=== PATIENT | male | born 1975 | race Hispanic/Latino ===

== ENCOUNTER 2018-01-25 11:50 | Emergency (ER) | payer OTHER ==
[2018-01-25] MEDS ORDERED: NACL 0.9% 1000 ML 1,000 ML IV ONE (12:25)
[2018-01-25 14:14] LABS: Basophils # (Auto) 0.1 K/mm3 (0.0-0.1); Basophils % (Auto) 1.4 % (0.0-1.8); Eosinophils # (Auto) 0.1 K/mm3 (0.0-0.4); Eosinophils % (Auto) 1.4 % (0.0-4.3); Hemoglobin 15.8 gm/dl (11.8-15.2); Lymphocytes # (Auto) 2.6 K/mm3 (1.2-5.4); Mean Corpuscular HGB Conc 34 % (32-34); Mean Corpuscular Hemoglobin 33 pg (28-32); Mean Corpuscular Volume 95 fl (84-94); Monocytes # (Auto) 0.5 K/mm3 (0.0-0.8); Platelet Count 272 K/mm3 (140-440); Red Blood Count 4.82 M/mm3 (3.65-5.03); Red Cell Distribution Width 13.6 % (13.2-15.2)
[2018-01-25 14:37] LABS: Alanine Aminotransferase 14 units/L (7-56); Albumin 4.1 g/dL (3.9-5); BUN/Creatinine Ratio 20; Blood Urea Nitrogen 12 mg/dL (9-20); Hemolysis Index 8; Lipase 80 units/L (13-60)
[2018-01-25 15:42] LABS: Bilirubin,Urine NEG (Negative); Blood,Urine NEG (Negative); Color,Urine Yellow (Yellow); Mucus,Urine FEW /HPF; Protein,Urine <15 mg/dL mg/dL (Negative); Urobilinogen,Urine < 2.0 mg/dL (<2.0)
[2018-01-25] MEDS ORDERED: NACL 0.9% 1000 ML 2,000 ML IV ONE (15:50)
--- NOTE | 2018-01-25 15:54 | Emergency Department Report ---
ED N/V/D HPI - General Chief complaint: Nausea/Vomiting/Diarrhea Stated complaint: SALMONELLA POISON Time Seen by Provider: 01/25/18 15:34 Source: patient Mode of arrival: Ambulatory Limitations: No Limitations - History of Present Illness Initial comments: This is a 43-year-old male here today because he was sent by his doctor from [facility] for treatment for salmonella. Patient said his PCP is Dr. Arabella Kearney and she did stool test and an H. pylori test on him 4 days ago and he received a phone call to say that he needs to go to the emergency room to be evaluated and treated. Patient reports that he started having diarrhea with intermittent blood in his stool since October 2017. He said he went to his primary care doctor and he was placed on Imodium. Patient said diarrhea has gotten better but has generalized weakness and bouts of nausea with previous vomiting and when symptoms first started but none over the last 2 weeks. He reports intermittent abdominal cramping to left lower quadrant that is 2/10. He said he has not taken any medication only Imodium for diarrhea and he had to loose stool today. He said that diarrhea has significantly decreased since November 14/2018. Denies any back pain, urinary burning anterior urgency or hematuria. Nothing makes abdominal pain better and nothing makes it worse. Denies any dizziness. Denies any fever or chills. Patient has no blood in stool over the last couple days. He said it was more at the beginning but now none noted in stool. MD complaint: nausea, vomiting, diarrhea, abdominal pain (abdominal cramping on and off) Onset/Timin -: month(s) Description of Vomiting: food contents Description of Diarrhea: blood-streaked Associated Abdominal Pain: Yes (cramps) Location: LLQ Radiation: none Severity: mild Pain Scale: 2 Quality: cramping Consistency: intermittent Improves with: none Worsens with: none Context: possible food poisoning (positive salmonella) Associated Symptoms: loss of appetite, nausea/vomiting, weakness. denies: myalgias, chest pain, cough, diaphoresis, fever/chills, headaches, malaise, rash , dysuria, shortness of breath, syncope - Related Data Previous Rx's Medication Instructions Recorded Last Taken Type Ciprofloxacin HCl [Ciprofloxacin 500 mg PO Q12H 10 Days #20 tab 01/25/18 Unknown Rx TAB] Dicyclomine [Bentyl] 20 mg PO Q8H 3 Days #9 tablet 01/25/18 Unknown Rx Ondansetron [Zofran Odt] 4 mg PO Q6H PRN #20 tab.rapdis 01/25/18 Unknown Rx Allergies Allergy/AdvReac Type Severity Reaction Status Date / Time No Known Allergies Allergy Verified 01/25/18 15:35 ED Review of Systems ROS: Stated complaint: SALMONELLA POISON Other details as noted in HPI Constitutional: weakness. denies: chills, fever Eyes: denies: eye pain, eye discharge, vision change ENT: denies: ear pain, throat pain Respiratory: denies: cough, shortness of breath, SOB with exertion, SOB at rest , wheezing Cardiovascular: denies: chest pain, palpitations, dyspnea on exertion, edema, syncope, paroxysmal nocturnal dyspnea Gastrointestinal: abdominal pain, nausea, vomiting, diarrhea, hematochezia. denies: constipation, hematemesis, melena Genitourinary: denies: urgency, dysuria, hematuria Musculoskeletal: denies: back pain, joint swelling, arthralgia, myalgia Skin: denies: rash, lesions Neurological: vertigo ED Past Medical Hx - Past Medical History Previous Medical History?: No - Surgical History Past Surgical History?: No - Family History Family history: hypertension - Social History Smoking Status: Current Every Day Smoker Substance Use Type: None - Medications Home Medications: Home Medications Medication Instructions Recorded Confirmed Last Taken Type Ciprofloxacin HCl [Ciprofloxacin 500 mg PO Q12H 10 Days #20 tab 01/25/18 Unknown Rx TAB] Dicyclomine [Bentyl] 20 mg PO Q8H 3 Days #9 tablet 01/25/18 Unknown Rx Ondansetron [Zofran Odt] 4 mg PO Q6H PRN #20 tab.rapdis 01/25/18 Unknown Rx ED Physical Exam - General Limitations: No Limitations General appearance: alert, in no apparent distress - Head Head exam: Present: atraumatic, normocephalic, normal inspection - Eye Eye exam: Present: normal appearance, PERRL, EOMI Pupils: Present: normal accommodation - ENT ENT exam: Present: normal exam, normal orophraynx, mucous membranes moist, TM's normal bilaterally, normal external ear exam - Neck Neck exam: Present: normal inspection, full ROM, other (no C-spine tenderness). Absent: tenderness, meningismus, lymphadenopathy - Respiratory Respiratory exam: Present: normal lung sounds bilaterally. Absent: respiratory distress, chest wall tenderness - Cardiovascular Cardiovascular Exam: Present: regular rate, normal rhythm, normal heart sounds. Absent: S3, S4, systolic murmur, diastolic murmur - GI/Abdominal GI/Abdominal exam: Present: soft, normal bowel sounds. Absent: distended, tenderness, guarding, rebound, rigid, organomegaly, mass, bruit, pulsatile mass - Extremities Exam Extremities exam: Present: normal inspection, other (no clubbing, cyanosis or edema. +2 pulses all extremities and no neurovascular compromise. No joint effusion, tenderness and no erythema to extremity. All extremities are nontender to palpate without any restriction in movement.), full ROM, normal capillary refill. Absent: tenderness, pedal edema, joint swelling, calf tenderness - Back Exam Back exam: Present: normal inspection, full ROM, other. Absent: tenderness, CVA tenderness (R), CVA tenderness (L), muscle spasm, paraspinal tenderness, vertebral tenderness, rash noted - Neurological Exam Neurological exam: Present: alert, oriented X3, normal gait, reflexes normal, other (no focal neurological deficit). Absent: motor sensory deficit - Psychiatric Psychiatric exam: Present: normal affect, normal mood - Skin Skin exam: Present: warm, dry, intact, normal color. Absent: rash ED Course Vital Signs 01/25/18 01/25/18 01/25/18 12:13 16:10 18:19 Temperature 98.1 F 98.4 F Pulse Rate 66 82 Respiratory 18 18 18 Rate Blood Pressure 103/65 Blood Pressure 110/70 [Left] O2 Sat by Pulse 96 99 Oximetry - Reevaluation(s) Reevaluation #1: 01/25/18 18:20 Patient is stable he received normal saline 2 L emergency room, Maalox 15 mL with lidocaine 15 mL for abdominal cramping, Bentyl 40 mg by mouth and Zofran 8 milligrams IV for nausea. He received Levaquin 750 milligrams by mouth for treatment of Solmonella Patient is now feeling better and his vital signs are stable and afebrile. ED Medical Decision Making - Lab Data Result diagrams: 01/25/18 13:52 01/25/18 13:52 Lab Results 07/11/18 07/11/18 07/11/18 Range/Units 13:52 13:52 15:18 WBC 7.2 (4.5-11.0) K/mm3 RBC 4.82 (3.65-5.03) M/mm3 Hgb 15.8 H (11.8-15.2) gm/dl Hct 46.0 H (35.5-45.6) % MCV 95 H (84-94) fl MCH 33 H (28-32) pg MCHC 34 (32-34) % RDW 13.6 (13.2-15.2) % Plt Count 272 (140-440) K/mm3 Lymph % (Auto) 36.0 H (13.4-35.0) % [place] % (Auto) 7.0 (0.0-7.3) % Eos % (Auto) 1.4 (0.0-4.3) % Baso % (Auto) 1.4 (0.0-1.8) % Lymph # 2.6 (1.2-5.4) K/mm3 [place] # 0.5 (0.0-0.8) K/mm3 Eos # 0.1 (0.0-0.4) K/mm3 Baso # 0.1 (0.0-0.1) K/mm3 Seg Neutrophils % 54.2 (40.0-70.0) % Seg Neutrophils # 3.9 (1.8-7.7) K/mm3 Sodium 141 (137-145) mmol/L Potassium 3.8 (3.6-5.0) mmol/L Chloride 101.8 (98-107) mmol/L Carbon Dioxide 27 (22-30) mmol/L Anion Gap 16 mmol/L BUN 12 (9-20) mg/dL Creatinine 0.6 L (0.8-1.5) mg/dL Estimated GFR > 60 ml/min BUN/Creatinine Ratio 20 % Glucose 109 H (75-100) mg/dL Calcium 9.0 (8.4-10.2) mg/dL Total Bilirubin 0.80 (0.1-1.2) mg/dL AST 16 (5-40) units/L ALT 14 (7-56) units/L Alkaline Phosphatase 68 (35-129) units/L Total Protein 6.3 (6.3-8.2) g/dL Albumin 4.1 (3.9-5) g/dL Albumin/Globulin Ratio 1.9 % Lipase 80 H (13-60) units/L Urine Color Yellow (Yellow) Urine Turbidity Clear (Clear) Urine pH 5.0 (5.0-7.0) Ur Specific [place] 1.017 (1.003-1.030) Urine Protein <15 mg/dl (Negative) mg/dL Urine Glucose (UA) Neg (Negative) mg/dL Urine Ketones Neg (Negative) mg/dL Urine Blood Neg (Negative) Urine Nitrite Neg (Negative) Urine Bilirubin Neg (Negative) Urine Urobilinogen < 2.0 (<2.0) mg/dL Ur Leukocyte Esterase Neg (Negative) Urine WBC (Auto) 1.0 (0.0-6.0) /HPF Urine RBC (Auto) 2.0 (0.0-6.0) /HPF Urine Mucus Few /HPF - Medical Decision Making ED course This is a 43-year-old patient sent by his primary care to emergency room for treatment for Salmonella poisoning. Patient has been having in diarrhea and nausea with vomiting in since October 2017. He is having cramping to her abdomen. He also reported episodic blood in his stool and last time was 2 days ago. He had testing done this past Tuesday at doctors office and he has a record showing that's positive for abdominal. Negative for C. difficile and negative H. pylori. Patient is here to be treated. Patient was screened by Dr. Kinney and I examined and saw patient. Physical findings is normal without any abdominal tenderness or CVA tenderness. CBC, CMP and urinalysis is stable. Lipase is mildly elevated at 80. Patient given normal saline 2 L emergency room and tolerated well. He was given nausea medication and pain medication which relieved his nausea and abdominal cramping. I discussed the patient has diagnosis, treatment plan and laboratory findings and he voiced understanding. He was started on Levaquin for Salmonella poisoning. A/P 1: Nausea-patient received Zofran 8 mg IV emergency room and normal saline 2 L which relieved his nausea. He is able to tolerate oral liquids emergency room. He'll be sent home on Zofran. Lipase is at 80 which is slightly elevated 2: Abdominal cramping-patient received hydrocodone 5/325 mg one tablet by mouth , Maalox 15 mL and lidocaine 15 mL by mouth, Bentyl 40 mg by mouth for relief of abdominal pain. 3: Salmonella poisoning-positive test that was done at doctors office and patient present results. He is started on Levaquin 750 mg by mouth in emergency room. 4: Diarrhea-no diarrhea in emergency room but reported he had diarrhea 2 today. Patient reports that his diarrhea subsided since October and that he felt better now and that it was worse when it first started in October. BRAT diet. CBC and CMP is normal. Urinalysis is normal. Patient educated on medication, treatment plan, laboratory findings, need to follow up with primary care and gastroenterology. Referral to client services director and back to primary care physician Patient discharged home in stable condition, vital signs stable. Afebrile. He reports feeling much better. She has nontoxic in appearance He is able tolerate oral liquids emergency room. Patient to follow up with gastroenterology in 2 days and primary care physician in one day. Discussed with him that if he has increasing diarrhea to include bloody diarrhea, abdominal pain, fever and/or chills, nausea or vomiting to return to the emergency room FERNANDO. He voiced understanding. Patient discharged home with prescription for Zofran, Bentyl and ciprofloxacin Critical care attestation.: If time is entered above; I have spent that time in minutes in the direct care of this critically ill patient, excluding procedure time. ED Disposition Clinical Impression: Salmonella infection, unspecified, Abdominal cramping in left lower quadrant, Nausea vomiting and diarrhea Disposition: DC-01 TO HOME OR SELFCARE Is pt being admited?: No Does the pt Need Aspirin: No Condition: Stable Instructions: Salmonella Infection (ED), Acute Nausea and Vomiting (ED), Acute Diarrhea (ED), Food Poisoning (ED), Abdominal Pain (ED), Nutrition Tips for Relief of Diarrhea (ED) Additional Instructions: Please increase her fluid intake to 2-3 L of water and Gatorade daily Follow up with her primary care physician in 2 days If nausea and vomiting, diarrhea, bloody stool, increase in abdominal pain that is not better medication please return to emergency room FERNANDO Takes Zofran for nausea as prescribed Takes ciprofloxacin for salmonella food poison Take Bentyl for abdominal cramping Please stop taking Imodium. Prescriptions: Ciprofloxacin HCl [Ciprofloxacin TAB] 500 mg PO Q12H 10 Days #20 tab Dicyclomine [Bentyl] 20 mg PO Q8H 3 Days #9 tablet Ondansetron [Zofran Odt] 4 mg PO Q6H PRN #20 tab.rapdis PRN Reason: Nausea And Vomiting Referrals: PRIMARY CARE, [Primary Care Provider] - 01/26/18 [facility] [Provider Group] - 01/27/18 Forms: Accompanied Note, Work/School Release Form(ED)
[2018-01-25] MEDS ORDERED: LIDOCAINE VISCOUS 2% PO ONE (15:56)
[2018-01-25] MEDS ORDERED: ALUM-MAG HYDROX-SIMETH 200-200-20MG/5ML PO ONE (15:56)
[2018-01-25] MEDS ORDERED: NORCO 5/325 PO ONE (15:56)
[2018-01-25] MEDS ORDERED: ZOFRAN IV ONE (15:56)
[2018-01-25] MEDS ORDERED: LEVAQUIN PO ONE (15:58)
--- NOTE | 2018-01-25 16:14 | Emergency Department Report ---
Blank Doc - Documentation Documentation: Patient seen by me he was nontoxic no signs of sepsis no heart murmur no signs of cellulitis or abscess or osteomyelitis patient is chronic salmonellosis and will be treated with fluids and antibiotics stop the Imodium
[2018-01-25] MEDS ORDERED: BENTYL PO ONE (16:56)
[2018-01-25 18:20] VITALS: BP 110/70
== END 2018-01-25 18:45 | disposition home or self-care (01) ==
LOC: ED 11:50
DX: A02.9 Salmonella infection, unspecified (principal); I10 Essential (primary) hypertension; F17.200 Nicotine dependence, unspecified, uncomplicated
CPT/HCPCS: 36415; 80053; 81001; 83690; 85025; 96361; 96374; 99283; J2405; J7030